=== PATIENT | male | born 1970 | race Caucasian/White ===

== ENCOUNTER → 2018-10-31 | Outpatient (CLI) | payer BC ==
--- NOTE | 2018-11-11 22:41 | SLEEP ---
[address] [address] SLEEP STUDY REPORT Name: VIJAYJEN CHESTER Room: [facility]#: [id number] Admission: 10/31/18 Attend Phys: ISRAEL Waggoner Discharge: Date of : 70 Report #: [id number] THIS REPORT FOR: //name// CC: ISRAEL Mcgrath This study has been reviewed in its entirety by a board certified sleep specialist DATE OF SERVICE: 10/31/2018 SLEEP STUDY ATTENDING PHYSICIAN: Dr. Addy Lucio The patient is a 48-year-old who weighs 200 pounds with a BMI of 27.9. The patient's Deputy score was 7. The patient underwent diagnostic sleep study performed at [facility]. During the night study, the patient spent 402 minutes in bed and slept for 310 minutes with a sleep efficiency of 77%. Sleep latency was 16.2 minutes with a REM latency of 78.5 minutes. Sleep architecture showed a normal stage 1 sleep, slightly increased stage 2 sleep, normal slow wave and normal REM sleep. During the night study, the patient had 1 obstructive apnea, no mixed or central apneas and 17 hypopneas. The patient's apnea hypopnea index was 3.5 per hour with a REM index of 5.3 per hour and a supine index of 1.4 per hour. EKG monitoring revealed an average heart rate of 69 beats per minute. No sustained arrhythmias observed. PLMS were seen at an index of 13 per hour and 8 per hour caused EEG arousals. Nocturnal oximetry study revealed an average oxygen saturation of 96% with a lowest of 86%. Nine minutes were spent in oxygen saturation less than 89%. Due to low AHI, the patient did not meet the split night criteria for CPAP initiation. IMPRESSION: 1. No clinically significant sleep disordered breathing. The patient's AHI for the entire night was 3.5 per hour. 2. Mild nocturnal hypoxia secondary to hypopneas. 3. Mild PLMS. RECOMMENDATIONS: [place] [address] SLEEP STUDY REPORT Name: JEN LINARES Room: [facility]#: [id number] Admission: 10/31/18 Attend Phys: ISRAEL Waggoner Discharge: Date of : 70 Report #: [id number] 1. The patient did not meet the split night criteria for CPAP initiation due to low AHI. 2. Weight loss to the ideal body weight is recommended. 3. PLMS does not need to be treated unless the patient has symptoms of restless legs during the day. 4. Avoid [employer] depressants. <ELECTRONICALLY SIGNED> By: Janes Mackey MD 11/11/18 [id number] Mackey MD /nt
== END ==
LOC: M.SLEEPLAB 20:52
DX: G47.30 Sleep apnea, unspecified (principal); R41.3 Other amnesia; G47.33 Obstructive sleep apnea (adult) (pediatric); G47.00 Insomnia, unspecified